=== PATIENT | female | born 1960 | race Native Hawaiian/Other Pacific Islander ===

== ENCOUNTER 2016-07-12 10:40 | Emergency (ER) | payer OTHER ==
[~2016-07-12] VITALS: Ht 172.7 cm; Wt 77.1 kg
[2016-07-12 11:13] LABS: PLATELET COUNT 249 K/uL (152-353)
[2016-07-12 11:24] LABS: POTASSIUM 3.7 mmol/L (3.6-5.2)
[2016-07-12 12:06] VITALS: BP 121/62; TEMP 98.1
== END 2016-07-12 12:06 | disposition home or self-care (01) ==
LOC: ED 10:40
DX: M48.06 Spinal stenosis, lumbar region (principal); M85.88 Other specified disorders of bone density and structure, other site; E11.9 Type 2 diabetes mellitus without complications
CPT/HCPCS: 36415; 80053; 83036; 85027; 99283

== ENCOUNTER 2016-07-22 13:53 | Emergency (ER) | payer OTHER ==
[~2016-07-22] VITALS: Ht 172.7 cm; Wt 74.8 kg
[2016-07-22 14:47] LABS: PLATELET COUNT 243 K/uL (152-353)
[2016-07-22 15:06] LABS: POTASSIUM 3.8 mmol/L (3.6-5.2)
[2016-07-22 15:31] VITALS: BP 133/64; TEMP 98
== END 2016-07-22 15:46 | disposition home or self-care (01) ==
LOC: ED 13:53
DX: J02.0 Streptococcal pharyngitis (principal); S22.41XA Multiple fractures of ribs, right side, initial encounter for closed fracture; X58.XXXA Exposure to other specified factors, initial encounter; Y93.89 Activity, other specified; Y92.89 Other specified places as the place of occurrence of the external cause; Y99.8 Other external cause status
CPT/HCPCS: 36415; 80053; 85027; 87804; 87880; 99283

== ENCOUNTER 2016-08-20 17:20 | Emergency (ER) | payer OTHER ==
[~2016-08-20] VITALS: Ht 172.7 cm; Wt 77.1 kg
[2016-08-20 17:27] VITALS: TEMP 98.3
[2016-08-20] MEDS ORDERED: SERT100T PO (17:42)
[2016-08-20] MEDS ORDERED: CLOP75TA2 PO (17:43)
[2016-08-20] MEDS ORDERED: LIPITOR10 MG PO (17:43)
[2016-08-20] MEDS ORDERED: FOLIC ACID5 MG PO (17:43)
[2016-08-20] MEDS ORDERED: LISI5TAB10 PO (17:44)
[2016-08-20] MEDS ORDERED: ASPIRIN PO (17:44)
[2016-08-20] MEDS ORDERED: VITAMIN D31000 UNIT OR (17:45)
[2016-08-20] MEDS ORDERED: NOVOLOG MIX 70/30 PR SC (17:45)
[2016-08-20] MEDS ORDERED: HYDR50CA21 PO (17:46)
[2016-08-20 18:35] LABS: PLATELET COUNT 263 K/uL (152-353)
[2016-08-20 18:44] LABS: POTASSIUM 4.2 mmol/L (3.6-5.2)
[2016-08-20 18:45] VITALS: BP 118/60
== END 2016-08-20 19:18 | disposition home or self-care (01) ==
LOC: ED 17:20
PROVIDERS: Family Medicine
DX: R07.81 Pleurodynia (principal); J44.1 Chronic obstructive pulmonary disease with (acute) exacerbation
CPT/HCPCS: 36415; 80053; 85027; 96372; 99283

== ENCOUNTER 2016-09-29 11:32 | Outpatient (CLI) | payer OTHER ==
[~2016-09-29 11:32] MED LIST: ASPIRIN PO; CLOP75TA2 PO; FOLIC ACID5 MG PO; HYDR50CA21 PO; LIPITOR10 MG PO; LISI5TAB10 PO; NOVOLOG MIX 70/30 PR SC; SERT100T PO; VITAMIN D31000 UNIT OR
== END 2016-09-29 11:36 | disposition short-term general hospital (02) ==
LOC: AMB 11:32
DX: E16.1 Other hypoglycemia (principal); R53.1 Weakness; R40.4 Transient alteration of awareness
CPT/HCPCS: A0425; A0427

== ENCOUNTER 2016-09-29 11:40 | Emergency (ER) | payer OTHER ==
[~2016-09-29] VITALS: Ht 172.7 cm; Wt 78.0 kg
[2016-09-29 12:04] LABS: PLATELET COUNT 263 K/uL (152-353)
[2016-09-29 12:19] LABS: POTASSIUM 3.2 mmol/L (3.6-5.2); SODIUM 138 mmol/L (136-145)
[2016-09-29 15:15] VITALS: BP 110/66; TEMP 97.6
== END 2016-09-29 15:15 | disposition home or self-care (01) ==
LOC: ED 11:40
DX: R55 Syncope and collapse (principal); E16.1 Other hypoglycemia; D50.8 Other iron deficiency anemias
CPT/HCPCS: 80053; 81000; 83036; 83540; 83550; 85027; 85044; 96360; 96361; 99284

== ENCOUNTER 2016-10-31 18:58 | Inpatient (IN) | payer OTHER ==
[~2016-10-31] VITALS: Ht 172.7 cm; Wt 76.2 kg
[2016-10-31 19:04] VITALS: BP 111/50; TEMP 98.5
[2016-10-31] MEDS ORDERED: NEURONTIN 100M100 MG OR (19:11)
[2016-10-31 20:16] LABS: PLATELET COUNT 230 K/uL (152-353)
[2016-10-31 20:42] LABS: POTASSIUM 3.4 mmol/L (3.6-5.2); SODIUM 138 mmol/L (136-145)
[2016-11-01] VITALS (7 sets, daily range): BP systolic 98–120; BP diastolic 47–68; TEMP 97.5–98.5; Ht 172.7 cm; Wt 76.2 kg
--- NOTE | 2016-11-01 02:54 | NUR ---
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 11/01/16 0030 CONSENT SIGNED FOR BLOOD TRANSFUSION. 11/01/16 0200 16 [place] CATHETER INSERTED USING STERILE TECHNIQUE.TOLERATED WELL APPROX 50ML YELLOW URINE DRAINED IN URINE BAG.CC 11/01/16 0250PT DROWSY LYING IN BED 02 DROPPED IN 88 PLACED OXYGEN AT 2LPM CAME UP TP 95 PERCENT.CONTINOUS MONITOR ON PATIENT.FIRST UNIT A POS PRBC'S STARTED. AT 50ML/HR TOLERATING WELL.BLOOD SUGAR CHECKED 70 JUICE AND CRACKERS PROVIDED.CC 11/01/16 0305 RESTING QUEITLY WITH EYES CLOSED 02 95 PERCENT HF.CC
--- NOTE | 2016-11-01 06:16 | NUR ---
11/01/16 0600 FIRST UNIT PRBC' COMPLETED.CC
[2016-11-02 00:22] VITALS: BP 104/53; TEMP 97.8
[2016-11-02 04:00] VITALS: BP 106/54; TEMP 97.9
[2016-11-02 06:31] LABS: POTASSIUM 3.4 mmol/L (3.6-5.2); SODIUM 134 mmol/L (136-145)
[2016-11-02 06:39] LABS: PLATELET COUNT 164 K/uL (152-353)
[2016-11-02 08:00] VITALS: BP 108/59; TEMP 98.5
--- NOTE | 2016-11-02 09:41 | NUR ---
0800 DR HUANG HERE FOR CONSULT. NEW ORDERS REC'D TO KEEP PT NPO PAST MN FOR EDG IN AM
[2016-11-02 12:00] VITALS: BP 123/65; TEMP 98.3
[2016-11-02 16:00] VITALS: BP 101/46; TEMP 98.2
[2016-11-02 20:00] VITALS: BP 98/49; TEMP 98.6
[2016-11-03] VITALS (11 sets, daily range): BP systolic 96–118; BP diastolic 53–83; TEMP 97.4–98.7
[2016-11-03 05:45] LABS: PLATELET COUNT 177 K/uL (152-353)
[2016-11-03 06:18] LABS: POTASSIUM 3.6 mmol/L (3.6-5.2); SODIUM 135 mmol/L (136-145)
--- NOTE | 2016-11-03 08:19 | NUR ---
PT TRANSPORTED TO OR VIA BED BY OR CREW.
--- NOTE | 2016-11-03 09:20 | NUR ---
PT RETURNED FROM OR VIA BED, V/S STABLE PT DOZING OFF TO SLEEP BUT EASY TO AROUSE. NAD NOTED. WILL MONITOR FREQUENT VITALS.
[2016-11-04] VITALS: BP 101/47; TEMP 98.5
[2016-11-04 04:00] VITALS: BP 99/44; TEMP 98.7
[2016-11-04 06:19] LABS: POTASSIUM 3.5 mmol/L (3.6-5.2); SODIUM 138 mmol/L (136-145)
[2016-11-04 06:48] LABS: PLATELET COUNT 163 K/uL (152-353)
--- NOTE | 2016-11-04 07:45 | NUR ---
PATIENT AWAKE, PHYSICAL THERAPY IN ROOM WORKING WITH PATIENT. SHE STATES SHE IS TIRED AND DID NOT SLEEP WELL LAST NIGHT. NO SPECIFIC COMPLAINTS AT THIS TIME, SHE JUST COULD NOT SLEEP WITHOUT HER AMBIEN. INSTRUCTED HER TO CALL FOR ASSISTANCE IF NEEDED.
[2016-11-04 08:00] VITALS: BP 112/57; TEMP 98.6
[2016-11-04 12:00] VITALS: BP 103/45; TEMP 98.5
--- NOTE | 2016-11-04 13:42 | NUR ---
DISCHARGE ORDERS RECEIVED, REVIEWED ALL INSTRUCTIONS WITH PATIENT. IV REMOVED, BANDAID APPLIED. GUEVARA CATHETER REMOVED. PATIENT TOLERATED WELL.
--- NOTE | 2016-11-04 14:00 | NUR ---
PATIENT ESCORTED TO HOSPITAL EXIT VIA WHEELCHAIR AND DISCHARGED HOME IN STABLE CONDITION.
== END 2016-11-04 14:17 | disposition home or self-care (01) | DRG 812 ==
LOC: ED 18:58 → MED/SURG 23:02
PROVIDERS: Emergency Medicine; ADMIT Specialist
PROC: 30233N1 Transfusion of Nonautologous Red Blood Cells into Peripheral Vein, Percutaneous Approach (ICD-10-PCS; 2016-11-01)
PROC: 0DB68ZX Excision of Stomach, Via Natural or Artificial Opening Endoscopic, Diagnostic (ICD-10-PCS; principal; 2016-11-03)
DX: D64.89 Other specified anemias (principal); N39.0 Urinary tract infection, site not specified; F17.200 Nicotine dependence, unspecified, uncomplicated; I25.10 Atherosclerotic heart disease of native coronary artery without angina pectoris; I73.89 Other specified peripheral vascular diseases; Z89.511 Acquired absence of right leg below knee; K31.84 Gastroparesis; K29.60 Other gastritis without bleeding; K29.80 Duodenitis without bleeding; K44.9 Diaphragmatic hernia without obstruction or gangrene; J44.9 Chronic obstructive pulmonary disease, unspecified; E11.42 Type 2 diabetes mellitus with diabetic polyneuropathy
CPT/HCPCS: 36415; 36416; 36430; 80053; 80061; 81000; 82607; 82728; 82747; 82948; 83540; 83550; 83735; 83880; 84100; 84466; 84484; 85014; 85018; 85027; 85044; 85379; 85610; 85651; 86850; 86900; 86901; 86922; 87077; 87086; 87088; 87186; 94760; 96372; 96374; 96375; 99284; J0744; J1940; J2001; J2175; J2270; J2405; J2704; J2765; J3475; J3490; J7120; P9016; Q0177; Q9963

== ENCOUNTER 2016-11-12 18:32 | Emergency (ER) | payer OTHER ==
[~2016-11-12] VITALS: Ht 172.7 cm; Wt 83.5 kg
[~2016-11-12 18:32] MED LIST changes: +NEURONTIN 100M100 MG OR
[2016-11-12 22:39] LABS: PLATELET COUNT 310 K/uL (152-353)
[2016-11-12 23:01] LABS: SODIUM 138 mmol/L (136-145)
[2016-11-13 00:24] VITALS: BP 119/57; TEMP 98.5
== END 2016-11-13 00:25 | disposition home or self-care (01) ==
LOC: ED 18:32
DX: M79.662 Pain in left lower leg (principal); R60.9 Edema, unspecified
CPT/HCPCS: 36415; 80053; 85027; 85379; 99282; 99283; 99284

== ENCOUNTER 2016-11-27 13:42 | Emergency (ER) | payer OTHER ==
[~2016-11-27] VITALS: Ht 172.7 cm; Wt 77.1 kg
[2016-11-27 13:50] VITALS: TEMP 98.5
[2016-11-27 15:00] VITALS: BP 128/60
== END 2016-11-27 15:20 | disposition home or self-care (01) ==
LOC: ED 13:42
DX: S70.02XA Contusion of left hip, initial encounter (principal); W18.39XA Other fall on same level, initial encounter; Y92.098 Other place in other non-institutional residence as the place of occurrence of the external cause
CPT/HCPCS: 81000; 99283